=== PATIENT | male | born 1970 | race Caucasian/White ===

== ENCOUNTER → 2018-09-26 | Outpatient (CLI) | payer MEDICAID, OTHER ==
--- NOTE | 2018-09-26 19:30 | REP ---
Clinical: Right knee pain. Technique: AP, lateral, bilateral oblique and sunrise views of the right knee. Findings: Minimal age-related degenerative changes include subtle increase sclerosis to the tibial plateau as well as increase sclerosis and fraying along the anterior margin of the patella suggesting mild patellar tendinopathy. No acute fracture dislocation. No obvious effusion. Impression: Mild degenerative changes. Electronically Signed by Andreas Chery MD 09/26/2018 07:21 P
== END ==
LOC: M RAD 18:46
PROVIDERS: ATTEND Physician Assistant Medical
DX: M25.561 Pain in right knee (principal)

== ENCOUNTER → 2018-10-12 | Outpatient (REF) | payer OTHER | LOC: M LAB REF 11:05 | PROVIDERS: ATTEND Physician Assistant | DX: J02.9 Acute pharyngitis, unspecified (principal) ==

== ENCOUNTER → 2023-07-08 | Outpatient (REF) | payer OTHER ==
[2023-07-08 13:30] LABS: ALBUMIN 4.2 G/DL (3.2-5.2); ALKALINE PHOSPHATASE 73 U/L (46-116); ALT/SGPT 56 U/L (7.0-40); AST/SGOT 26 U/L (<34); BILIRUBIN,TOTAL 0.5 MG/DL (0.3-1.2); BLOOD UREA NITROGEN 24 MG/DL (9-23); CALCIUM LEVEL 9.1 MG/DL (8.5-10.1); CARBON DIOXIDE LEVEL 30 MMOL/L (20-31); CHLORIDE LEVEL 108 MMOL/L (98-107); CHOLESTEROL LEVEL 178 MG/DL (<200); CHOLESTEROL RISK RATIO 4.21 (<5); CREATININE FOR GFR 1.13 MG/DL (0.70-1.30); GLOMERULAR FILTRATION RATE > 60.0 (>56); GLUCOSE, FASTING 95 MG/DL (60-100); HDL CHOLESTEROL 42.2 MG/DL (>40); LDL CHOLESTEROL 111.2 MG/DL (<100); NON-HDL-C 135.8 MG/DL; POTASSIUM SERUM 4.8 MMOL/L (3.5-5.1); SODIUM LEVEL 143 MMOL/L (136-145); TOTAL PROTEIN 6.9 G/DL (5.7-8.2); TRIGLYCERIDES LEVEL 123 MG/DL (<150)
[2023-07-08 13:35] LABS: THYROID STIMULATING HORMONE 3.549 uIU/ML (0.55-4.78)
== END ==
LOC: M LAB REF 11:29
PROVIDERS: ATTEND Family Medicine Addiction Medicine
DX: Z00.01 Encounter for general adult medical examination with abnormal findings (principal)

== ENCOUNTER 2024-02-11 04:46 | Emergency (ER) | payer OTHER ==
[~2024-02-11] VITALS: Ht 167.6 cm; Wt 91.6 kg
[2024-02-11 04:48] VITALS: BP 122/75; TEMP 97.6; O2SAT 99
[2024-02-11 06:05] LABS: RSV AMPLIFICATION NEGATIVE (NEGATIVE)
[2024-02-11] MEDS ORDERED: CETI10CH PO (06:23)
[2024-02-11] MEDS ORDERED: BENZ200C70 PO (06:23)
[2024-02-11] MEDS: dexAMETHasone 4 MG TAB PO ONE (06:46)
== END 2024-02-11 06:55 | disposition home or self-care (01) ==
LOC: M ED 04:46
DX: J06.9 Acute upper respiratory infection, unspecified (principal); Z79.2 Long term (current) use of antibiotics; Z79.899 Other long term (current) drug therapy